=== PATIENT | female | born 1980 | race Two or more races ===

== ENCOUNTER 2018-03-29 14:41 | Emergency (ER) | payer MEDICAID, OTHER ==
[~2018-03-29] VITALS: Ht 154.9 cm; Wt 70.3 kg
[2018-03-29 14:57] VITALS: BP 131/73
== END 2018-03-29 20:15 | disposition home or self-care (01) ==
LOC: ER 14:41
DX: H66.92 Otitis media, unspecified, left ear (principal); H60.92 Unspecified otitis externa, left ear

== ENCOUNTER → 2018-04-30 | Outpatient (CLI) | payer OTHER ==
[2018-05-04 12:10] LABS: Hepatitis B Surface Antibody Negative
[2018-05-04 13:32] LABS: Hepatitis B Surface Antigen Negative (Negative)
== END | disposition home or self-care (01) ==
LOC: LAB 16:11
PROVIDERS: ATTEND Preventive Medicine Preventive Medicine/Occupational Environmental Medicine
DX: S61.233A Puncture wound without foreign body of left middle finger without damage to nail, initial encounter (principal); Z77.21 Contact with and (suspected) exposure to potentially hazardous body fluids; X58.XXXA Exposure to other specified factors, initial encounter; Y93.89 Activity, other specified; Y92.89 Other specified places as the place of occurrence of the external cause; Y99.8 Other external cause status
CPT/HCPCS: 36415; 86703; 86706; 86803; 87340